=== PATIENT | male | born 1945 | race Caucasian/White ===

== ENCOUNTER 2022-02-22 14:22 | Emergency (ER) | payer OTHER, MEDICARE ==
[~2022-02-22] VITALS: Ht 177.8 cm; Wt 75.3 kg
[2022-02-22] MEDS ORDERED: ASPI81CH PO (15:00)
[2022-02-22] MEDS ORDERED: ABILIFY MYCITE5 M2 PO (15:00)
[2022-02-22] MEDS ORDERED: ATOR40TA PO (15:00)
[2022-02-22] MEDS ORDERED: FAMO20 PO (15:01)
[2022-02-22] MEDS ORDERED: FERROUS GLUCON324 M7 PO (15:01)
[2022-02-22] MEDS ORDERED: HUMALOG KW100 UNIT/1 SC (15:02)
[2022-02-22] MEDS ORDERED: LORA10ER PO (15:03)
[2022-02-22] MEDS ORDERED: LANTUS SOL100 UNIT/1 SC (15:03)
[2022-02-22] MEDS ORDERED: MIRT30 PO (15:04)
[2022-02-22] MEDS ORDERED: [UNRECOGNIZED DRUG - OTHER] BOTHEYES (15:04)
[2022-02-22] MEDS ORDERED: Hair, Skin & N1 EACH PO (15:04)
[2022-02-22] MEDS ORDERED: MIRALAX17 GM PO (15:05)
[2022-02-22] MEDS ORDERED: SENN187 PO (15:05)
[2022-02-22] MEDS ORDERED: C COMPLEX1000 M1 PO (15:06)
[2022-02-22] MEDS ORDERED: ACET325 PO (15:06)
[2022-02-22] MEDS ORDERED: DULCOLAX400 MG/5 M PO (15:07)
== END 2022-02-22 20:53 | disposition home or self-care (01) ==
LOC: ER 14:22
DX: S12.191A Other nondisplaced fracture of second cervical vertebra, initial encounter for closed fracture (principal); Z79.899 Other long term (current) drug therapy; Z79.82 Long term (current) use of aspirin; W01.0XXA Fall on same level from slipping, tripping and stumbling without subsequent striking against object, initial encounter; Y93.E1 Activity, personal bathing and showering
CPT/HCPCS: 70450; 72040; 72125; 99284-25; L0160

== ENCOUNTER → 2022-09-27 | Outpatient (CLI) | payer MEDICARE ==
[~2022-09-27] MED LIST: ABILIFY MYCITE5 M2 PO; ACET325 PO; ASPI81CH PO; ATOR40TA PO; C COMPLEX1000 M1 PO; DULCOLAX400 MG/5 M PO; FAMO20 PO; FERROUS GLUCON324 M7 PO; HUMALOG KW100 UNIT/1 SC; Hair, Skin & N1 EACH PO; LANTUS SOL100 UNIT/1 SC; LORA10ER PO; MIRALAX17 GM PO; MIRT30 PO; SENN187 PO; [UNRECOGNIZED DRUG - OTHER] BOTHEYES
[2022-09-27 15:46] LABS: Source, Urine Clean Catch
[2022-09-27 16:59] LABS: Appearance, Urine Clear (Clear); Bilirubin, Urine Neg (Neg); Blood, Urine Neg (Neg); Color, Urine Yellow (P-Yellow); Glucose Qualitative, Urine 4+ (Neg); Ketones, Urine Neg (Neg); Leukocyte Esterase, Urine Neg (Neg); Nitrite, Urine Neg (Neg); Protein, Urine 4+ (Neg); Specific Gravity, Urine 1.025 (1.003-1.022); Urobilinogen, Urine NORM (Normal)
[2022-09-27 17:24] LABS: Bacteria Many /hpf; Granular Casts 0-2 /lpf (0); Red Blood Cells, Urine 0-2 /hpf (0-2); Squamous Epithelial Cells Rare /hpf (Few); White Blood Cells, Urine 0-2 /hpf (0-5); Yeast/Fungi Urine Few /hpf
== END | disposition home or self-care (01) ==
LOC: LAB SHORT 14:15 → LAB 14:15
PROVIDERS: Family Medicine
DX: N39.0 Urinary tract infection, site not specified (principal)
CPT/HCPCS: 81001; 87086

== ENCOUNTER → 2023-06-09 | Outpatient (CLI) | payer MEDICARE ==
[2023-06-09 15:23] LABS: Source, Urine Clean Catch
[2023-06-09 16:48] LABS: Appearance, Urine Clear (Clear); Bilirubin, Urine Neg (Neg); Blood, Urine Neg (Neg); Color, Urine Yellow (P-Yellow); Glucose Qualitative, Urine Neg (Neg); Ketones, Urine Neg (Neg); Leukocyte Esterase, Urine Neg (Neg); Nitrite, Urine Neg (Neg); Protein, Urine 4+ (Neg); Specific Gravity, Urine 1.015 (1.003-1.022); Urobilinogen, Urine NORM (Normal)
[2023-06-09 17:10] LABS: White Blood Cells, Urine 0-2 /hpf (0-5)
[2023-06-09 17:11] LABS: Bacteria Rare /hpf; Hyaline Casts 0-2 /lpf (0-2); Red Blood Cells, Urine 0-2 /hpf (0-2); Renal Epithelial Rare /hpf (0-Rare); Squamous Epithelial Cells Rare /hpf (Few)
== END | disposition home or self-care (01) ==
LOC: LAB SHORT 10:00 → LAB 10:00
PROVIDERS: Family Medicine
DX: N39.0 Urinary tract infection, site not specified (principal)
CPT/HCPCS: 81001

== ENCOUNTER 2024-06-05 17:01 | Inpatient (IN) | payer MEDICARE ==
[~2024-06-05] VITALS: Ht 172.7 cm; Wt 56.5 kg
[~2024-06-05 17:01] MED LIST changes: -DULCOLAX400 MG/5 M PO; +MILK OF MAGNESIA PO
[2024-06-05 17:19] VITALS: BP 128/85
[2024-06-05] MEDS ORDERED: ADULT TUSS100 MG/51 PO (17:41)
[2024-06-05] MEDS ORDERED: SENNA LAXATIVE8.6 MG PO (17:51)
[2024-06-05] MEDS ORDERED: EYE ALLERGY IT2.5 ML BOTHEYES (17:58)
[2024-06-05] MEDS ORDERED: FLU VACC TS2024-25(6MOS UP)/PF 45 MCG/0.5 ML SYRINGE IM ONE (18:10)
[2024-06-05] MEDS ORDERED: Ondansetron 4 MG TAB PO PRN (18:10)
[2024-06-05] MEDS ORDERED: Acetaminophen 325 MG TABLET PO PRN (18:15)
[2024-06-05] MEDS ORDERED: NS 1,000 ML IV SCH (18:15)
[2024-06-05 18:31] LABS: BASOPHILS ABSOLUTE AUTO 0.03 K/mm3 (0.00-0.23); BASOPHILS PERCENT AUTO 0 % (0-2); EOSINOPHILS ABSOLUTE AUTO 0.16 K/mm3 (0.00-0.68); EOSINOPHILS PERCENT AUTO 2 % (0-6); Hematocrit 25.7 % (37.0-53.0); Hemoglobin 8.7 g/dL (13.5-17.5); IMMATURE GRAN ABSOLUTE AUTO 0.08 K/mm3 (0.00-0.10); IMMATURE GRAN PERCENT AUTO 1 % (0-1); LYMPHOCYTES ABSOLUTE AUTO 0.72 K/mm3 (0.84-5.20); LYMPHOCYTES PERCENT AUTO 8 % (21-46); MONOCYTES ABSOLUTE AUTO 0.85 K/mm3 (0.16-1.47); MONOCYTES PERCENT AUTO 9 % (4-13); Mean Corpuscular HGB 33.1 pg (26.0-34.0); Mean Corpuscular HGB Conc 33.9 g/dL (31.5-36.5); Mean Corpuscular Volume 98 fL (80-100); Mean Platelet Volume 9.8 fL (9.1-12.4); NEUTROPHILS ABSOLUTE AUTO 7.45 K/mm3 (1.96-9.15); NEUTROPHILS PERCENT AUTO 80 % (41-73); Platelet Count 315 K/mm3 (150-400); RDW Coefficient Variation 12.9 % (11.7-14.2); RDW Standard Deviation 45.6 fL (35.1-46.3); Red Blood Cell Count 2.63 M/mm3 (4.30-5.90); White Blood Cell Count 9.29 K/mm3 (4.00-11.30)
--- NOTE | 2024-06-05 18:44 | NUR ---
"Spiritual Care | Pt. Request Pt. is awake in bed. Daughter Hortensai is at bedside and welcomes my visit. Facilitated a short life review. Considered matters of faisal and beleif. Prayed with the Pt. and verbalized that I would [place] back and see him in the morning. Pt. nodded, and daughter verbalized gratitude for the spiritual care visit."
[2024-06-05 18:55] LABS: Albumin, Blood 1.9 g/dL (3.4-5.0); Albumin/Globulin Ratio 0.4 (0.8-1.8); Bilirubin, Total 0.3 mg/dL (0.1-1.0); Bun/Creatinine Ratio 17.9 (12.0-20.0); Calcium, Blood 8.5 mg/dL (8.5-10.1); Creatinine, Blood 2.34 mg/dL (0.60-1.20); Globulin, Blood 5.4 g/dL (2.2-4.0); Potassium, Blood 4.3 mmol/L (3.5-5.5); Total Protein, Blood 7.3 g/dL (6.4-8.2)
[2024-06-05] MEDS ORDERED: QUEtiapine Fumarate 25 MG Tab PO PRN (19:25)
[2024-06-05 19:34] VITALS: BP 122/87
[2024-06-05] MEDS ORDERED: Mirtazapine 30 MG Tab PO SCH (21:00)
[2024-06-05] MEDS ORDERED: Docusate Sodium 100 MG Cap PO SCH (21:00)
[2024-06-05] MEDS ORDERED: CefTRIAXone Sodium 1,000 MG in NS 100 ML IV SCH (21:16)
[2024-06-05] MEDS ORDERED: Ciprofloxacin 400MG/D5 200ML 200 ML IV SCH (21:19)
[2024-06-06 05:10] LABS: BASOPHILS ABSOLUTE AUTO 0.04 K/mm3 (0.00-0.23); BASOPHILS PERCENT AUTO 0 % (0-2); EOSINOPHILS ABSOLUTE AUTO 0.08 K/mm3 (0.00-0.68); EOSINOPHILS PERCENT AUTO 1 % (0-6); Hematocrit 25.9 % (37.0-53.0); Hemoglobin 8.8 g/dL (13.5-17.5); IMMATURE GRAN PERCENT AUTO 1 % (0-1); LYMPHOCYTES ABSOLUTE AUTO 0.61 K/mm3 (0.84-5.20); LYMPHOCYTES PERCENT AUTO 5 % (21-46); MONOCYTES ABSOLUTE AUTO 1.13 K/mm3 (0.16-1.47); MONOCYTES PERCENT AUTO 10 % (4-13); Mean Corpuscular HGB 32.7 pg (26.0-34.0); Mean Corpuscular Volume 96 fL (80-100); Mean Platelet Volume 10.1 fL (9.1-12.4); NEUTROPHILS ABSOLUTE AUTO 9.84 K/mm3 (1.96-9.15); NEUTROPHILS PERCENT AUTO 83 % (41-73); Platelet Count 313 K/mm3 (150-400); RDW Coefficient Variation 12.9 % (11.7-14.2); Red Blood Cell Count 2.69 M/mm3 (4.30-5.90)
[2024-06-06 05:30] VITALS: BP 132/88
[2024-06-06 05:43] LABS: Bun/Creatinine Ratio 18.3 (12.0-20.0); Calcium, Blood 8.6 mg/dL (8.5-10.1); Creatinine, Blood 2.19 mg/dL (0.60-1.20); Magnesium, Blood 2.1 mg/dL (1.6-2.4); Potassium, Blood 4.1 mmol/L (3.5-5.5)
--- NOTE | 2024-06-06 06:07 | NUR ---
SHIFT SUMMARY PT AOX1, VERY CONFUSED OVERNIGHT. THROUGHOUT NIGHT, PT WOULD GET OUT OF BED AND ATTEMPT TO GO TO THE RESTROOM BY HIMSELF. REDIRECTION AND REORIENTATION DID NOT WORK. HOWEVER, ONCE PT WAS FINISHED USING BATHROOM, HE WAS EASILY REDIRECTABLE. PT IS COOPERATIVE, BUT DOES NOT MAKE HIS NEEDS KNOWN. DUE TO RECENT FALL AT PREVIOUS FACILITY, HE HAD BED ALARM ON. PT HAS IV IN RAC, AND WAS TOLD BY FAMILY THAT SOMETIMES WILL ATTEMPT TO REMOVE LINES. OVERNIGHT, RN OBSERVED NO BEHAVIOR SUGGESTING PT WOULD PULL AT HIS LINES. NO ACUTE EVENTS OVERNIGHT.
[2024-06-06] MEDS ORDERED: Insulin Human Lispro 100 Units/ML 3ML Syringe SC SCH (07:30)
[2024-06-06 08:30] VITALS: BP 179/95
[2024-06-06] MEDS ORDERED: Polyethylene Glycol 3350 17 gm PO SCH (09:00)
[2024-06-06] MEDS ORDERED: Enoxaparin 30 MG/0.3 ML SYR SC SCH (09:00)
[2024-06-06] MEDS ORDERED: Aspirin 81 MG Chew PO SCH (09:00)
[2024-06-06] MEDS ORDERED: Insulin Glargine-Yfgn 100 Unit/mL 3 ML SYR SC SCH (09:00)
[2024-06-06] MEDS ORDERED: Famotidine 20 MG Tab PO SCH (09:00)
[2024-06-06] MEDS ORDERED: Ferrous Gluconate 325 MG Tablet PO SCH (09:00)
--- NOTE | 2024-06-06 10:37 | NUR ---
TALKED WITH NEHEMIAH FROM [place] FOR UPDATES. INFORMED NEHEMIAH THAT PT NEEDED OXYGEN REQUIREMENTS WHILE AMBULATING DUE TO DESATTING IN 70'S FROM ACTIVITY, AND SPEECH ARMIN RECOMMENDED PUREE DIET WITH MEDS CRUSHED IN APPLESAUCE. INFORMED PT IS ALWAYS RECEIVING INSULIN PER MEDIUM SLIDING SCALE.
--- NOTE | 2024-06-06 12:09 | NUR ---
"SPiritual Care | Family Support Pt. was being cared for by the nursing staff. Met with Pts. daughter who also has been his primary caregiver in the hallway outside of his room. Facilitated an update of the Pts. progress, and listened with empathy as the daughter spoke of the many years she has care for him. Daughter Hortnesia verbalized that the Pt. enjoyed the spiritual care visit and welcomed the tapper bit to return. Will remain available to the Pt. and family."
[2024-06-06] MEDS ORDERED: KETOCONAZOLE TOP (14:00)
[2024-06-06] MEDS ORDERED: TRIDERM28.4 GM TOP (14:02)
--- NOTE | 2024-06-06 16:07 | NUR ---
MET WITH PROVIDER TO REVIEW PT THIS MORNING. PT'S DTR HAS NOTED A RECENT DECLINE WITH PT'S OVERALL HEALTH. THIS PC RN SPOKE WITH PT'S DTR, KAREN BY PHONE. PLAN: IS TO GIVE ANOTHER 24 HRS OF IV ABX BEFORE HAVING A GOC CONVERSATION. TENTATIVE FAMILY MEETING SET FOR 1030 TOMORROW 06/07/24 IN PT'S ROOM. PRIMARY RN UPDATED.
[2024-06-06 16:26] VITALS: BP 170/125
[2024-06-06 16:41] VITALS: BP 161/113
--- NOTE | 2024-06-06 16:45 | NUR ---
INFORMED MD OF ELEVATED VITAL SIGNS, MD TO PLACE IN ORDERS MOMENTARILY.
[2024-06-06] MEDS ORDERED: Labetalol HCL 5 MG/ML 4ML Injection (Single Dose) IV PRN (16:50)
[2024-06-06 17:31] VITALS: BP 133/86
--- NOTE | 2024-06-06 18:06 | NUR ---
SHIFT SUMMARY PT AOX2/3, COOPERATIVE, ABLE TO MAKE NEEDS KNOWN. PT HAS BEEN AMULATING TO BATHROOM, ON 4L O2 CURRENTLY, DESATS DOWN TO 80 WITH ACTIVITY. PALLIATIVE CARE MEETING WITH DAUGHTER TOMORROW AT 1030. PT DID HAVE HIGH BP DURING SHIFT, INFORMED MD AND MEDICATED WITH IV LABETOLOL, RESPONDED APPROPRIATELY. BED ALARM ACTIVE, WILL CONTINUE TO MONITOR. BED IN LOWEST POSITION, CALL LIGHT WITHIN REACH.
[2024-06-06 20:00] VITALS: BP 164/96
[2024-06-06] MEDS ORDERED: Docusate Sodium/Senna 1 Tab PO SCH (21:00)
--- NOTE | 2024-06-06 21:59 | NUR ---
CHANGE OF CONDITION/ HOSPITALIST CALL PATIENT IS TACHYPNEIC, LUNG SOUNDS CRACKLY, AND OXYGEN DEMAND INCREASED THROUGHOUT THE NIGHT. PATIENT PLACED ON CONTINUOUS PULSE OXIMETERY. PATIENT IS AOX2, IS NOT EASILY REDIRECTABLE. PATIENT NEEDED TO GO TO BATHROOM 2X TIMES DURING SHIFT, AND WAS ON TOILET 30MIN EACH TIME. WHEN PATIENT GOT BACK TO BED, HE WAS TACHYPNEIC, HR LOW 100S, SPO2 HIGH 80S. NONREBREATHER MASK PLACED ON PATIENT FOR 10 MINUTES UNTIL SPO2 >92%, THEN PATIENT PLACED ON OXYMASK AT 8L, BECAUSE PATIENT BREATHES THROUGH MOUTH. CALLED HOSPITALIST AT [phone] RELAYING THIS INFORMATION, AND FOR ANY ORDERS.
[2024-06-06 23:51] LABS: Base Excess Venous -3.9 mmol/L; Bicarbonate Venous 20.9 mmol/L (24.0-30.0); PCO2 Venous 45.4 mmHg (38-42)
[2024-06-07] VITALS (50 sets, daily range): BP systolic 82–207; BP diastolic 44–181
--- NOTE | 2024-06-07 00:06 | NUR ---
RT IN ROOM.
--- NOTE | 2024-06-07 00:12 | NUR ---
CALLED DR. TOLBERT - REVIEWED CURRENT OXYGEN SATURATIONS AND LUNG SOUNDS - NEW ORDERS OBTAINED. DR. TOLBERT TO COME TO SEE PT.
[2024-06-07] MEDS ORDERED: Furosemide 10 MG / ML 2ML Vial IV ONE ×2 (00:15→01:00)
--- NOTE | 2024-06-07 00:15 | NUR ---
DR. TOLBERT HERE - PT TO BE TRANSFERRED TO ICU. SOBEIDA TO CONTACT PT'S DAUGHTER WITH UPDATED TRANSFER ORDERS.
--- NOTE | 2024-06-07 00:20 | NUR ---
BREAK NURSE RN COVERING - 0005 - SATS MAINTAINING AT 81% ON 15L NRB MASK - RT HAS BEEN NOTIFIED. SABA, DAUGHTER [phone] CALLED AND LEFT VOICE MAIL REGARDING PT'S O2 SATURATIONS.
[2024-06-07] MEDS ORDERED: Piperacillin/Tazobactam Sod 2.25 GM in NS 50 ML IV SCH (01:03)
[2024-06-07 01:11] LABS: BASOPHILS ABSOLUTE AUTO 0.06 K/mm3 (0.00-0.23); BASOPHILS PERCENT AUTO 0 % (0-2); EOSINOPHILS ABSOLUTE AUTO 0.01 K/mm3 (0.00-0.68); EOSINOPHILS PERCENT AUTO 0 % (0-6); Hematocrit 31.9 % (37.0-53.0); Hemoglobin 10.7 g/dL (13.5-17.5); IMMATURE GRAN ABSOLUTE AUTO 0.26 K/mm3 (0.00-0.10); IMMATURE GRAN PERCENT AUTO 1 % (0-1); LYMPHOCYTES ABSOLUTE AUTO 0.62 K/mm3 (0.84-5.20); LYMPHOCYTES PERCENT AUTO 3 % (21-46); MONOCYTES ABSOLUTE AUTO 1.72 K/mm3 (0.16-1.47); MONOCYTES PERCENT AUTO 8 % (4-13); Mean Corpuscular HGB 32.9 pg (26.0-34.0); Mean Corpuscular HGB Conc 33.5 g/dL (31.5-36.5); Mean Corpuscular Volume 98 fL (80-100); Mean Platelet Volume 10.4 fL (9.1-12.4); NEUTROPHILS ABSOLUTE AUTO 18.56 K/mm3 (1.96-9.15); NEUTROPHILS PERCENT AUTO 88 % (41-73); Platelet Count 410 K/mm3 (150-400); RDW Coefficient Variation 13.2 % (11.7-14.2); RDW Standard Deviation 46.5 fL (35.1-46.3); Red Blood Cell Count 3.25 M/mm3 (4.30-5.90); White Blood Cell Count 21.23 K/mm3 (4.00-11.30)
[2024-06-07 01:27] LABS: Bun/Creatinine Ratio 19.6 (12.0-20.0); Calcium, Blood 8.6 mg/dL (8.5-10.1); Creatinine, Blood 2.19 mg/dL (0.60-1.20)
--- NOTE | 2024-06-07 01:30 | NUR ---
PT ARRIVED FROM MEDICAL FLOOR AT 0045. HE APPEARED SHORT OF BREATH AND LETHARGIC. PT WAS ON AIRVO. SINUS TACH ON MONITOR, HYPERTENSIVE. SWITCHED TO BIPAP, SPO2 100%.
[2024-06-07] MEDS ORDERED: dexmedeTOMIDine 100 ML IV SCH (01:40)
[2024-06-07] MEDS ORDERED: Haloperidol Lactate Inj. 5 MG/ML Injection IM PRN (02:50)
[2024-06-07 03:47] LABS: Source, Urine Clean Catch
[2024-06-07 03:58] LABS: Bilirubin, Urine Neg (Neg); Blood, Urine 4+ (Neg); Glucose Qualitative, Urine 2+ (Neg); Ketones, Urine Neg (Neg); Leukocyte Esterase, Urine Neg (Neg); Nitrite, Urine Neg (Neg); Protein, Urine 4+ (Neg); Urobilinogen, Urine NORM (Normal)
[2024-06-07 04:14] LABS: Appearance, Urine Hazy (Clear); Color, Urine Pale Yellow (P-Yellow)
[2024-06-07 04:15] LABS: Amorphous Mod (0-Heavy); Bacteria Few /hpf; Hyaline Casts 0-2 /lpf (0-2); Red Blood Cells, Urine 0-2 /hpf (0-2); Squamous Epithelial Cells Mod /hpf (Few); White Blood Cells, Urine 0-2 /hpf (0-5)
[2024-06-07 04:44] LABS: Base Excess Venous -2.5 mmol/L; Bicarbonate Venous 22.3 mmol/L (24.0-30.0); PCO2 Venous 36.7 mmHg (38-42); pH Blood Venous 7.39 (7.34-7.37)
--- NOTE | 2024-06-07 05:32 | NUR ---
SHIFT SUMMARY: PT IS ON PRECEDEX GTT AND RECEIVED ONE DOSE OF HALDOL. HE HAS BEEN TOLERATING THE BIPAP MASK AND IS LESS AGITATED AND SOB THAN HE WAS WHEN HE ARRIVED. HE HAS SKIN TEARS TO HIS RIGHT ARM THAT HAVE BEEN BANDAGED. CONDOM CATH IS IN PLACE AND DRAINING WITHOUT ISSUE. PT REMAINS ORIENTED TO SELF AND HIS DAUGHTER. HE HAD NO COMPLAINT OF PAIN. LUNGS ARE COARSE IN THE MID AND BASES. PT WAS TACHYCARDIC AND HYPERTENSIVE UPON ARRIVAL. HIS HR IS NOW IN THE 70S AND HE'S NORMOTENSIVE. HIS DAUGHTER HAS REMAINED AT BEDSIDE SINCE HE WAS TRANSFERRED TO THE ICU. SHE STILL INTENDS ON HAVING MEETING WITH CARE TEAM TODAY TO DISCUSS GOALS OF CARE AND POSSIBLY HOSPICE.
[2024-06-07] MEDS ORDERED: LORazepam 2 MG/ML 1ML Injection IV ONE (06:40)
--- NOTE | 2024-06-07 07:08 | NUR ---
ASSUMPTION OF CARE: ASSUMED CARE OF PATIENT. PATIENT RESTING COMFORTABLY IN BED ON THE BIPAP. SETTINGS 15/10/70%. RR IN THE LOW 30S AND HIGH 20S. AND VOLUMES IN THE 500'S. SPO2 AT 99%. BLOOD PRESSURES ARE STABLE WITH MAPS >65. HR IN THE 70S. CONDOM CATH IN PLACE AND DRAINING FREELY LIGHT YELLOW URINE. PRECEDEX AT 0.2 MCG/KG/MIN. PATIENT'S DAUGHTER SABA AT BEDSIDE. NO QUESTIONS OR CONCERNS AT THIS TIME.
[2024-06-07] MEDS ORDERED: NS 100 ML IV ONE (07:24)
[2024-06-07] MEDS ORDERED: Piperacillin/Tazobactam Sod 4.5 GM in NS 100 ML IV SCH (08:00)
[2024-06-07 09:25] LABS: Influenza A, PCR NEGATIVE (NEGATIVE); Influenza B, PCR NEGATIVE (NEGATIVE); Resp Syncytial Virus, PCR NEGATIVE (NEGATIVE); SARS-Cov-2 (COVID-19) PCR, MMC NEGATIVE (NEGATIVE)
--- NOTE | 2024-06-07 10:23 | NUR ---
Spiritual Care Visit. Pt. is on bipap and is not responsive. Daughter is at bedside and welcomes my visit. Faciliated an update of the Pts. move down to ICU. Listen with interest and empathy as I have been with pt. and family previously. Daughter verbalized that there will be a meeting to discuss plan of care later in the day. When nursing staff came to do Pt. care, daughter requested prayer. Prayed with Pt. Will continue to monitor the Pt. and family.
[2024-06-07] MEDS ORDERED: Atropine Sulfate 1% Opth Soln 2ML BTL SL PRN (11:50)
[2024-06-07] MEDS ORDERED: Acetaminophen 650 MG Supp PR PRN (11:50)
[2024-06-07] MEDS ORDERED: Scopolamine Hydrobromide Patch TOP PRN (11:50)
--- NOTE | 2024-06-07 11:50 | NUR ---
GOALS OF CARE CONVERSATION WITH DTR, PROVIDER, ENVIRONMENTAL SERVICE AIDE, BEDSIDE RN, PC RN, SON VIA SPEAKER PHONE. S/P CONFERENCE FAMILY DECIDED TO MOVE FORWARD WITH COMFORT/HOSPICE CARE. CHANGE OF CARE PLAN TO TAKE PLACE AFTER SON ARRIVES FROM OUT OF TOWN. FAMILY TO NOTIFY BEDSIDE RN WHEN THEY ARE READY. CHANGES TO ORDERS INCLUDE D/C PO MEDS AND ADDITION OF RECTAL TYLENOL, ATROPINE AND SCOPOLAMINE. CONTINUE IV ABX, CBG'S AND INSULIN AT THIS TIME. PC TO REMAIN AVAILABLE NEEDED. PROVIDED DTR WITH LIST OF HOMES, SHE CHOSE [facility]. [facility] "GONE FROM MY SIGHT" PROVIDED AND REVIEWED FOR EOL S/SX TO EXPECT.
--- NOTE | 2024-06-07 13:58 | NUR ---
Spiritual Care Visit. Pt. is awake and on a bi-pap but responds when I come to bedside. Facilitate some re-introduction and listen with Care and empathy. Pt. had previously attempted to get out of bed, so we discussed the importance of stay in bed for his safety. Pt. acknowledged and displayed evidence of understanding and agreement. Continued to develop rapport. Prayed with Pt. Soon after daughter arrived. Facilitated more life review with daughter at bedside. Daughter verbalized gratitude for the spiritual care visit. Will remain available to the Pt. and family.
[2024-06-07] MEDS ORDERED: Morphine Sulfate 20 MG/1ML 1 ML Oral Syringe SL PRN (17:05)
[2024-06-07] MEDS ORDERED: Haloperidol Lactate 2 MG/ML Conc 1ML Dose PO PRN (17:05)
--- NOTE | 2024-06-07 17:10 | NUR ---
PRIMARY RN CONFIRMED PT/FAMILY ARE READY TO CHANGE CARE PLAN TO COMFORT. ORDERS UPDATED ACCORDINGLY.
--- NOTE | 2024-06-07 18:40 | NUR ---
Spiritual Care Comfort Care Visit. Family is at bedside and welcome my visit. Pt. is intitial somnolent, but rouses during the visit. Met the Pts. son from [place]. Daughter at bedside verbalized a hopeful expectation of being able to take the Pt. back to his care facility on hospice. Prayed with Pt. and family. Family verbalized gratitude for the spiritual care visit.
--- NOTE | 2024-06-07 19:17 | NUR ---
SHIFT SUMMARY: PER FAMILY AND PATIENT WISHES, PATIENT TRANSITIONED TO COMFORT CARE THIS AFTERNOON. PATIENT'S DAUGHTER AND SABA PATRICIO AT BEDSIDE THROUGHOUT THE SHIFT. PATIENT'S SON, ESEQUIEL ABLE TO ARRIVE THIS AFTERNOON. DURING THE DAY, PATIENT ABLE TO BE TITRATED OFF OF THE BIPAP. PATIENT TOLERATING 2-6L VIA NC FOR THE AFTERNOON. PATIENT DENIED SHORTNESS OF BREATH OR DIFFICULTY BREATHING. PRIOR TO INITIATING COMFORT CARE MEASURES, PATIENT'S VITALS STABLE WITH MAPS >65 AND HR IN THE 70S. PRECEDEX GTT STOPPED THIS AFTERNOON. PATIENT DENIED PAIN AND DISCOMFORT. NO SIGNS OF PAIN OR DISCOMFORT NOTED. PATIENT ABLE TO ASSIST WITH BED BATH AND ABLE TO MAKE HIS NEEDS KNOWN. CONDOM CATH IN PLACE; DRAINING CLEAR YELLOW URINE FREELY. COMFORT CARE CART IN THE ROOM. FAMILY ABLE TO MAKE NEEDS KNOWN AND REPORT THAT THEIR NEEDS ARE BEING MET.
--- NOTE | 2024-06-08 06:29 | NUR ---
SHIFT SUMMARY PT ALERT AND ORIENTED TIMES 2. PT ADMITTED WITH PMH OF CVA, VASCULAR DEMENTIA, CKD STG 4, ANEMIA, AND PRESUMED PROSTATE CX. TREATED ORIGINALLY FOR PNEUMONIA BUT CONDITIONED WORSENED AFTER ABX. PT HAS SITTER, IS IMPULSIVE, BED EXITING BEHAVIORS, MONITORING WHILE EATING, NO STRAWS. PUREE DIET. PT IS ON 4-6L O2. PT HAS CONDOM CATH IN PLACE THAT DRAINS WELL. PT IS ON COMFORT CARE. PT HAD FALL DURING INITIAL ATTEMPT BY EMT S TO TRANSPORT FROM [facility] TO ED. PT HAS BRUISE ON FOREHEAD ( CT DONE IN ED AND IS NEG) HAS SLIGHT SKIN TEAR, AND BRUISING THROUGH OUT. CALL LIGHT WITHIN REACH, RAILS TIMES 2, BED IN LOW POSITION.
[2024-06-08] MEDS ORDERED: LORazepam 0.5 MG Tab PO PRN (08:55)
[2024-06-08] MEDS ORDERED: Famotidine 20 MG Tab PO SCH (09:00)
--- NOTE | 2024-06-08 15:32 | NUR ---
Spiritual Care Attempted. Pt. is somnolent and not responsive. Pts. son is at bedside and agrees to have this county ordinary return at a later time.
--- NOTE | 2024-06-08 18:12 | NUR ---
SHIFT SUMMARY ON COMFORT CARE, FAMILY AT BEDSIDE. PT MIIMALLY RESPONSIVE, WAKING ONLY DURING PERSONAL CARE AND REPOSITIONING. LABORED BREATHING AND RESTLESSNESS BEING WELL MANAGED WITH ROXONAL AND ATIVAN, PT TREATED PER EMAR. PUREWICK PLACED FOR COMFORT, PATENT AND DRAINING. PT CURRENTLY RESTING IN HOSPITAL BED WITH BED IN LOWEST POSITION AND BED ALARM ON. SITTER PRESENT. CALL LIGHT WITHIN REACH OF PT.
[2024-06-08] MEDS ORDERED: Morphine Sulfate 10 MG/ML 1MLSYR IV PRN (18:55)
[2024-06-08] MEDS ORDERED: LORazepam 2 MG/ML 1ML Injection IV PRN (18:55)
--- NOTE | 2024-06-09 07:01 | NUR ---
SHIFT SUMMARY PT EXPERIENCING MULTIPLE EPISODES OF DISCOMFORT THROUGHOUT NIGHT. PT MEDICATED REGULARLY, GOING BACK AND FORTH BETWEEN MORPHINE AND ATIVAN, AND ADDED ATROPINE FOR EXCESS SECRETIONS. PT S CHILDREN HAVE BEEN AT BEDSIDE FOR ENTIRE SHIFT. FAMILY IS PLEASANT AND HELPFUL WITH PT CARE. HE HAS BEEN UNRESPONSIVE FOR SHIFT DURATION. WILL PASS ON TO DAY SHIFT.
--- NOTE | 2024-06-09 09:42 | NUR ---
Pastoral care visitation. Pt was resting peacefully and didn't rouse the duration. Son and daughter near bedside and provided an update as to the patient's situation and decline. Family have been satisfied with the level of spiritual care provided thus far but also request sacrament of the sick via a brand attendant. Prayer and a blessing were provided before stepping out to secure a railroad car repair supervisor visit. [facility] was contacted with a request for a railroad car repair supervisor visit per family's wishes. Will continue to remain available for further pastoral support.
--- NOTE | 2024-06-09 11:01 | NUR ---
Father Gaor able to provide priestly visitation for patient and family as per requested.
--- NOTE | 2024-06-09 15:53 | NUR ---
COMFORT CARE VISIT: PT IN BED NON-RESPONSIVE AT THIS TIME. MILD JAYA STOKE BREATHING AT THIS TIME. MINIMAL AUDIBLE SECRETIONS. FLACC 2/10 DUE TO FROWN. CACHECTIC IN APPEARANCE. PT IS LAYING ON HIS LEFT SIDE. NO APPARENT DISTRESS. PT IS ACTIVELY DYING. DR. MALIK IS PRESENT. DAUGHTER AND SON-IN LAW ARE PRESENT. GAVE EMOTIONAL SUPPORT AND ENCOURAGEMENT. THEY APPEAR TO BE CALM AND HANDLING SITUATION APPROPRIATELY. DAUGHTER SABA PROVIDES FEEDBACK ON WONDERFUL CARE STAFF ARE PROVIDING. SABA HAD QUESTIONS/CONCERNS ABOUT WHAT HAPPENS WHEN HER FATHER PASSES. PROVIDED EDUCATION ON POST [facility]ORT[facility] CARE AND WHAT TO EXPECT WHEN HER FATHER PASSES. SABA STATED HER FATHER HAS PLOT IN [place] TO BE BURIED NEXT TO HIS LATE . SHE WILL HAVE GRAVESIDE . PROVIDED NECK PILLOW FOR PATIENT COMFORT EARLIER THIS MORNING. PT APPEARS TO BE BENEFITING FROM USE. RN REPORTS PT IS GETTING IV MORPHINE AND ATIVAN FOR COMFORT SINCE HE COUGHS TOO MUCH WITH SL ROXANOL. APPEARS TO BE MANAGING HIS SYMPTOMS.
--- NOTE | 2024-06-09 16:37 | NUR ---
Pastoral care visitation upon patient passing. Condolences and deepest sympathy extended to multiple family in the room at the pt's bedside. Consolatory prayer and presence provided. Family grieving appropriately at this time. This PC stepped out as family spent more time in the room. Will remain available as needed for spiritual support.
--- NOTE | 2024-06-09 18:21 | NUR ---
SHIFT/DISCHARGE SUMMARY: PATIENT ON CC MEASURE, UNRESPONSIVE, MEDICATED FOR COMFORT PER EMAR. PATIENT REPOSITIONED AND ORAL CARE DONE. PATIENT FAMILY AT BEDSIDE AND REQUESTING FOR WHEELABRATOR OPERATOR, NOTIFIED NURSING YOSHI sheikh FAMILY'S REQUEST. WHEELABRATOR OPERATOR CAME BY THIS AM ALONG WITH REEMA KAT. PATIENT TOD 1549 c FAMILY AT BEDSIDE. NOTIFIED RESTAURANT HOURLY MANAGER, SABA AND DR. MALIK. FAMILY TOOK ALL PATIENT PERSONAL BELONGINGS. [facility] CARE DONE. PIV DC'D. PATIENT LEFT THE ROOM AT 1812 TRANSPORTED VIA GURNEY BY [facility]OUCHRA DELAROSA FROM [facility]
== END 2024-06-09 18:15 | DRG 177 ==
LOC: MEDS 17:01 → ICUE 06-07 00:50 → MEDS 06-08 00:50
PROVIDERS: Student in an Organized Health Care Education/Training Program; ADMIT Family Medicine
PROC: 5A09357 Assistance with Respiratory Ventilation, Less than 24 Consecutive Hours, Continuous Positive Airway Pressure (ICD-10-PCS; principal; 2024-06-07)
DX: J69.0 Pneumonitis due to inhalation of food and vomit (principal); G93.41 Metabolic encephalopathy; J96.01 Acute respiratory failure with hypoxia; E44.0 Moderate protein-calorie malnutrition; Z68.1 Body mass index [BMI] 19.9 or less, adult; N18.4 Chronic kidney disease, stage 4 (severe); E87.20 Acidosis, unspecified; F01.B4 Vascular dementia, moderate, with anxiety; F01.B11 Vascular dementia, moderate, with agitation; Z66 Do not resuscitate; J18.9 Pneumonia, unspecified organism; S00.83XA Contusion of other part of head, initial encounter; D63.1 Anemia in chronic kidney disease; W18.11XA Fall from or off toilet without subsequent striking against object, initial encounter; Z51.5 Encounter for palliative care; E11.22 Type 2 diabetes mellitus with diabetic chronic kidney disease; R53.1 Weakness; E78.5 Hyperlipidemia, unspecified; K21.9 Gastro-esophageal reflux disease without esophagitis; K59.09 Other constipation; Z79.899 Other long term (current) drug therapy; Z79.891 Long term (current) use of opiate analgesic; Z79.82 Long term (current) use of aspirin; Z79.4 Long term (current) use of insulin; Z79.85 Long-term (current) use of injectable non-insulin antidiabetic drugs; Z85.46 Personal history of malignant neoplasm of prostate; Z86.73 Personal history of transient ischemic attack (TIA), and cerebral infarction without residual deficits; Z98.890 Other specified postprocedural states; Z87.891 Personal history of nicotine dependence; Y92.121 Bathroom in nursing home as the place of occurrence of the external cause; Z28.21 Immunization not carried out because of patient refusal
CPT/HCPCS: 0241U; 36415; 70450; 71045; 71046; 80048; 80053; 81001; 82803; 82947; 83735; 83880; 84145; 85025; 85379; 85651; 86140; 92610; 94660; 94760; 94762; 96361; 96365; 96366; 96367; 96372; 97116; 97162; A9270; G0378; G0379; J0696; J0744; J1630; J1650; J1815; J1940; J2060; J2270; J2543; J7030